=== PATIENT | male | born 1980 | race Caucasian/White ===

== ENCOUNTER 2020-06-16 08:33 | Emergency (ER) | payer SELFPAY ==
[2020-06-16 09:17] LABS: #Basophils 0.1 thou/uL (0.0-0.2); #Eosinphils 0.3 thou/uL (0.0-0.7); #Lymphocytes 1.8 thou/uL (1.20-3.40); #Monocytes 0.7 thou/uL (0.11-0.59); #Neutrophils 4.4 thou/uL (1.40-6.50); %Basophils 1.7 % (0.0-1.0); %Eosinophils 3.9 % (0.0-10.0); %Lymphocytes 24.6 % (21.0-51.0); %Monocytes 9.9 % (0.0-10.0); %Neutrophils 59.9 % (42.0-75.0); Hemoglobin 15.5 g/dL (14.0-18.0); Mean Corpuscular HGB CONC 34.3 g/dL (32.0-36.0); Mean Corpuscular Hemoglobin 30.1 pg (27.0-31.0); Mean Corpuscular Volume 87.8 fL (78.0-98.0); Mean Platelet Volume 7.6 fL (7.4-10.4); Platelet Count 319 thou/uL (130-400); RBC Distribution Width 11.5 % (11.5-14.5); Red Blood Cell (RBC) Count 5.14 mill/uL (4.70-6.10); White Blood Cell (WBC) Count 7.3 thou/uL (4.8-10.8)
--- NOTE | 2020-06-16 09:19 | RAD ---
EXAM: CHEST ONE VIEW HISTORY: Anxiety, dyspnea. COMPARISON: None FINDINGS: Cardiac silhouette is magnified by shallow depth of inspiration and portable technique. Pulmonary vas culature is within normal limits. The lungs are clear. There is partial visualization of a plate and screws transfixing the visualized proximal right humerus. IMPRESSION: No acute cardiopulmonary process.
[2020-06-16 09:33] LABS: ALT (SGPT) 49 U/L (8-55); AST (SGOT) 24 U/L (5-34); Alkaline Phosphatase 87 U/L (40-110); Anion Gap 13 mmol/L (10-20); BUN (Urea Nitrogen) 13 mg/dL (8.9-20.6); Bilirubin, Total 0.3 mg/dL (0.2-1.2); CK (CPK) 66 U/L (30-200); Calc. Creatinine Clearance 0 mL/min (70-130); Carbon Dioxide 24 mmol/L (22-29); Chloride 103 mmol/L (98-107); Estimated GFR-MDRD Greater than 90; Globulin 2.8 g/dL (2.4-3.5); Glucose 129 mg/dL (70-105); Potassium 4.3 mmol/L (3.5-5.1); Protein, Total 6.8 g/dL (6.0-8.3); Sodium 136 mmol/L (136-145)
== END 2020-06-16 10:27 | disposition home or self-care (01) ==
LOC: NAV ERS 08:33
DX: S29.011A Strain of muscle and tendon of front wall of thorax, initial encounter (principal); S16.1XXA Strain of muscle, fascia and tendon at neck level, initial encounter; G44.209 Tension-type headache, unspecified, not intractable; F41.9 Anxiety disorder, unspecified; F32.9 Major depressive disorder, single episode, unspecified; F43.10 Post-traumatic stress disorder, unspecified; E78.5 Hyperlipidemia, unspecified; E78.00 Pure hypercholesterolemia, unspecified; I10 Essential (primary) hypertension; Z79.899 Other long term (current) drug therapy; X50.1XXA Overexertion from prolonged static or awkward postures, initial encounter
CPT/HCPCS: 71045; 80053; 82550; 84484; 85025; 93005

== ENCOUNTER 2021-05-22 18:12 | Emergency (ER) | payer SELFPAY | END 2021-05-22 19:04 | disposition home or self-care (01) | LOC: NAV ERS 18:12 | DX: M12.571 Traumatic arthropathy, right ankle and foot (principal); T14.90XS Injury, unspecified, sequela; W22.8XXS Striking against or struck by other objects, sequela ==

== ENCOUNTER 2021-09-02 22:08 | Emergency (ER) | payer SELFPAY ==
[2021-09-02] MEDS ORDERED: Sulfameth/Trimethoprim DS 800-160mg TAB ONE (22:46)
== END 2021-09-02 22:50 | disposition home or self-care (01) ==
LOC: NAV ERS 22:08
DX: L03.221 Cellulitis of neck (principal); H60.11 Cellulitis of right external ear; J34.0 Abscess, furuncle and carbuncle of nose; Z79.899 Other long term (current) drug therapy; I10 Essential (primary) hypertension
CPT/HCPCS: 99283

== ENCOUNTER 2021-09-23 20:56 | Emergency (ER) | payer BC, SELFPAY ==
[2021-09-23] MEDS ORDERED: Albuterol Sulfate 2.5 mg/0.5 ml Neb ONE (21:07)
[2021-09-23] MEDS ORDERED: methylPREDNISolone Sod Succ/PF 125 MG/2 ML VIAL ONE (21:07)
[2021-09-23] MEDS ORDERED: Ipratropium Bromide 2.5 ml Neb ONE (21:07)
[2021-09-23] MEDS ORDERED: Famotidine/PF 20 mg/2ml Vial ONE (21:07)
== END 2021-09-23 22:11 | disposition home or self-care (01) ==
LOC: NAV ERS 20:56
DX: T78.1XXA Other adverse food reactions, not elsewhere classified, initial encounter (principal); R06.2 Wheezing; E78.5 Hyperlipidemia, unspecified; E78.00 Pure hypercholesterolemia, unspecified; I10 Essential (primary) hypertension; Z79.899 Other long term (current) drug therapy
CPT/HCPCS: 94640; 94760; 96374; 96375; J2930; J7611; S0028

== ENCOUNTER 2021-11-05 13:26 | Emergency (ER) | payer BC ==
[2021-11-05 13:53] LABS: #Basophils 0.1 thou/uL (0.0-0.2); #Eosinphils 0.3 thou/uL (0.0-0.7); #Lymphocytes 1.8 thou/uL (1.20-3.40); #Monocytes 0.7 thou/uL (0.11-0.59); #Neutrophils 4.1 thou/uL (1.40-6.50); %Basophils 1.6 % (0.0-1.0); %Eosinophils 4.7 % (0.0-10.0); %Lymphocytes 25.2 % (21.0-51.0); %Monocytes 9.5 % (0.0-10.0); %Neutrophils 58.9 % (42.0-75.0); Hemoglobin 16.3 g/dL (14.0-18.0); Mean Corpuscular HGB CONC 33.6 g/dL (32.0-36.0); Mean Corpuscular Hemoglobin 29.7 pg (27.0-31.0); Mean Corpuscular Volume 88.4 fL (78.0-98.0); Mean Platelet Volume 7.5 fL (7.4-10.4); Platelet Count 332 thou/uL (130-400); RBC Distribution Width 11.5 % (11.5-14.5); Red Blood Cell (RBC) Count 5.47 mill/uL (4.70-6.10); White Blood Cell (WBC) Count 6.9 thou/uL (4.8-10.8)
[2021-11-05] MEDS ORDERED: Metoclopramide HCl 10 MG/2 ML VIAL ONE (14:02)
[2021-11-05] MEDS ORDERED: diphenhydrAMINE 50 MG/ML VIAL ONE (14:02)
[2021-11-05] MEDS ORDERED: Sodium Chloride 0.9% 100 ML ONE (14:02)
[2021-11-05] MEDS ORDERED: Acetaminophen 500 MG TAB ONE (14:02)
[2021-11-05 14:07] LABS: ALT (SGPT) 46 U/L (8-55); AST (SGOT) 23 U/L (5-34); Albumin 4.4 g/dL (3.5-5.0); Alkaline Phosphatase 87 U/L (40-110); Anion Gap 15 mmol/L (10-20); BUN (Urea Nitrogen) 16 mg/dL (8.9-20.6); Bilirubin, Total 0.7 mg/dL (0.2-1.2); Calc. Creatinine Clearance 0 mL/min (70-130); Calcium 9.3 mg/dL (7.8-10.44); Carbon Dioxide 25 mmol/L (22-29); Chloride 100 mmol/L (98-107); Globulin 2.9 g/dL (2.4-3.5); Glucose 193 mg/dL (70-105); Lipase 16 U/L (8-78); Protein, Total 7.3 g/dL (6.0-8.3); Sodium 136 mmol/L (136-145)
[2021-11-05] MEDS ORDERED: methylPREDNISolone Sod Succ/PF 125 MG/2 ML VIAL ONE (15:44)
[2021-11-05] MEDS ORDERED: Ketorolac Tromethamine 30 MG/ML VIAL ONE (15:44)
== END 2021-11-05 17:41 | disposition home or self-care (01) ==
LOC: NAV ERS 13:26
DX: G43.909 Migraine, unspecified, not intractable, without status migrainosus (principal); R07.9 Chest pain, unspecified; R73.9 Hyperglycemia, unspecified; I10 Essential (primary) hypertension; E78.5 Hyperlipidemia, unspecified; E78.00 Pure hypercholesterolemia, unspecified
CPT/HCPCS: 36416; 70450; 71045; 80053; 83690; 84484; 85025; 93005; 96365; 96375; J1200; J1885; J2765; J2930

== ENCOUNTER 2022-06-19 20:56 | Emergency (ER) | payer BC, SELFPAY ==
[2022-06-19] MEDS ORDERED: Clindamycin 150 MG CAP ONE (21:41)
== END 2022-06-19 21:45 | disposition home or self-care (01) ==
LOC: NAV ERS 20:56
DX: L03.211 Cellulitis of face (principal); L03.221 Cellulitis of neck; L03.113 Cellulitis of right upper limb; E78.00 Pure hypercholesterolemia, unspecified; I10 Essential (primary) hypertension; Z79.899 Other long term (current) drug therapy
CPT/HCPCS: 99283

== ENCOUNTER 2022-07-13 16:48 | Emergency (ER) | payer SELFPAY ==
[2022-07-13] MEDS ORDERED: Ketorolac Tromethamine 30 MG/ML VIAL ONE (17:26)
[2022-07-13] MEDS ORDERED: Sodium Chloride 0.9% 1,000 ML ONE (17:26)
[2022-07-13] MEDS ORDERED: Ondansetron PF 4 MG/2 ML Vial ONE (17:26)
== END 2022-07-13 18:33 | disposition home or self-care (01) ==
LOC: NAV ERS 16:48
DX: B34.9 Viral infection, unspecified (principal); E78.00 Pure hypercholesterolemia, unspecified; I10 Essential (primary) hypertension; Z20.822 Contact with and (suspected) exposure to COVID-19; Z79.899 Other long term (current) drug therapy
CPT/HCPCS: 87804; 96361; 96374; 96375; J1885; J2405; J7050; U0003; U0005

== ENCOUNTER 2022-09-30 12:33 | Emergency (ER) | payer SELFPAY | END 2022-09-30 14:03 | disposition home or self-care (01) | LOC: NAV ERS 12:33 | DX: J06.9 Acute upper respiratory infection, unspecified (principal); I10 Essential (primary) hypertension; E78.00 Pure hypercholesterolemia, unspecified; Z79.899 Other long term (current) drug therapy | CPT/HCPCS: 71046; 87081; 87430; 87804; 87807 ==

== ENCOUNTER 2023-01-11 14:40 | Emergency (ER) | payer SELFPAY ==
[2023-01-11] MEDS ORDERED: Ondansetron ODT 4 MG TAB ONE (15:32)
[2023-01-11] MEDS ORDERED: Ibuprofen 200 MG TAB ONE (15:32)
== END 2023-01-11 15:40 | disposition home or self-care (01) ==
LOC: NAV ERS 14:40
DX: J32.9 Chronic sinusitis, unspecified (principal); E11.9 Type 2 diabetes mellitus without complications; E78.5 Hyperlipidemia, unspecified; I10 Essential (primary) hypertension; Z79.899 Other long term (current) drug therapy
CPT/HCPCS: 36416; 99283; Q0162

== ENCOUNTER 2023-06-06 22:01 | Emergency (ER) | payer BC, SELFPAY ==
[2023-06-06 22:56] LABS: #Basophils 0.1 thou/uL (0.0-0.2); #Eosinphils 0.2 thou/uL (0.0-0.7); #Lymphocytes 1.1 thou/uL (1.20-3.40); #Monocytes 0.8 thou/uL (0.11-0.59); %Basophils 0.6 % (0.0-1.0); %Eosinophils 1.7 % (0.0-10.0); %Lymphocytes 9.5 % (21.0-51.0); %Monocytes 7.3 % (0.0-10.0); %Neutrophils 80.9 % (42.0-75.0); Hemoglobin 14.5 g/dL (14.0-18.0); Mean Corpuscular HGB CONC 33.7 g/dL (32.0-36.0); Mean Corpuscular Hemoglobin 29.7 pg (27.0-31.0); Mean Corpuscular Volume 88.1 fl (78.0-98.0); Mean Platelet Volume 7.4 fL (7.4-10.4); Platelet Count 374 10x3/uL (130-400); RBC Distribution Width 11.6 % (11.5-14.5); Red Blood Cell (RBC) Count 4.88 mill/uL (4.70-6.10); White Blood Cell (WBC) Count 11.1 10x3/uL (4.8-10.8)
[2023-06-06] MEDS ORDERED: Promethazine HCl 25 MG/ML VIAL ONE (23:03)
[2023-06-06] MEDS ORDERED: Sodium Chloride 0.9% 1,000 ML ONE (23:03)
[2023-06-06] MEDS ORDERED: Morphine 4 MG/ML VIAL ONE (23:03)
[2023-06-06 23:12] LABS: ALT (SGPT) 50 U/L (8-55); AST (SGOT) 39 U/L (5-34); Albumin 4.3 g/dL (3.5-5.0); Alkaline Phosphatase 70 U/L (40-110); Anion Gap 16 mmol/L (10-20); BUN (Urea Nitrogen) 14 mg/dL (8.9-20.6); Bilirubin, Total 0.6 mg/dL (0.2-1.2); Calc. Creatinine Clearance 0 mL/min (70-130); Calcium 9.9 mg/dL (7.8-10.44); Carbon Dioxide 29 mmol/L (22-29); Chloride 97 mmol/L (98-107); Estimated GFR 59; Glucose 141 mg/dL (70-105); Lipase 14 U/L (8-78); Potassium 4.6 mmol/L (3.5-5.1); Protein, Total 7.3 g/dL (6.0-8.3); Sodium 137 mmol/L (136-145)
[2023-06-06 23:29] LABS: Bilirubin Negative (Negative); Blood, Urine Negative (Negative); CAUTI Indications for Culture Pelvic or flank pain; Clarity Clear (Clear); Glucose, Urine (Dipstick) Negative (Negative); Ketone, Urine Trace mg/dL (Negative); Leukocyte Negative (Negative); Nitrite Negative (Negative); Protein, Urine (Dipstick) 30 mg/dL (Neg-Trace); WBC/HPF 0-3 HPF (0-3)
[2023-06-06 23:30] LABS: Urine Culture Reflex No No
== END 2023-06-07 00:10 | disposition home or self-care (01) ==
LOC: NAV ERS 22:01
DX: R10.12 Left upper quadrant pain (principal); R10.11 Right upper quadrant pain; R11.2 Nausea with vomiting, unspecified; E11.9 Type 2 diabetes mellitus without complications; E78.5 Hyperlipidemia, unspecified; I10 Essential (primary) hypertension; Z79.899 Other long term (current) drug therapy
CPT/HCPCS: 74022; 80053; 81001; 83605; 83690; 85025; 96374; 96375; J2270; J2550; J7050

== ENCOUNTER 2023-07-08 14:39 | Emergency (ER) | payer BC ==
[2023-07-08] MEDS ORDERED: Sodium Chloride 0.9% 1,000 ML ONE (15:14)
[2023-07-08 15:22] LABS: #Basophils 0.1 thou/uL (0.0-0.2); #Eosinphils 0.3 thou/uL (0.0-0.7); #Lymphocytes 1.5 thou/uL (1.20-3.40); #Monocytes 0.4 thou/uL (0.11-0.59); #Neutrophils 3.4 thou/uL (1.40-6.50); %Eosinophils 4.5 % (0.0-10.0); %Lymphocytes 26.8 % (21.0-51.0); %Monocytes 7.6 % (0.0-10.0); %Neutrophils 60.1 % (42.0-75.0); Hemoglobin 14.5 g/dL (14.0-18.0); Mean Corpuscular HGB CONC 34.4 g/dL (32.0-36.0); Mean Corpuscular Hemoglobin 29.9 pg (27.0-31.0); Mean Platelet Volume 8.2 fL (7.4-10.4); Platelet Count 293 10x3/uL (130-400); RBC Distribution Width 11.9 % (11.5-14.5); Red Blood Cell (RBC) Count 4.83 mill/uL (4.70-6.10); White Blood Cell (WBC) Count 5.6 10x3/uL (4.8-10.8)
[2023-07-08 15:28] LABS: Base Excess-Venous -0.4 mmol/L (-2.0 to 3.0); CO2 Tension (PvCO2) 53.4 mmHg (42.0-51.0); Calcium, Ionized 1.27 mmol/L (1.15-1.33); Chloride 103 mmol/L (98-107); Hemoglobin - Calc 15.4 g/dL (14.0-18.0); Potassium 4.5 mmol/L (3.5-5.1); Sodium 138 mmol/L (138-145); T. Carbon Dioxide 28.6 mmol/L (22.0-28.0); vO2 Saturation-calc 57.8 % (60.0-85.0)
[2023-07-08 15:39] LABS: ALT (SGPT) 47 U/L (8-55); AST (SGOT) 28 U/L (5-34); Albumin 4.4 g/dL (3.5-5.0); Alkaline Phosphatase 103 U/L (40-110); Anion Gap 13 mmol/L (10-20); BUN (Urea Nitrogen) 15 mg/dL (8.9-20.6); Bilirubin, Total 0.3 mg/dL (0.2-1.2); Calc. Creatinine Clearance 0 mL/min (70-130); Calcium 9.4 mg/dL (7.8-10.44); Carbon Dioxide 25 mmol/L (22-29); Chloride 102 mmol/L (98-107); Estimated GFR 52; Glucose 292 mg/dL (70-105); Potassium 4.4 mmol/L (3.5-5.1); Protein, Total 7.4 g/dL (6.0-8.3); Sodium 136 mmol/L (136-145)
[2023-07-08] MEDS ORDERED: Insulin Regular 300 UNITS/3 ML VIAL ONE (16:01)
== END 2023-07-08 16:28 | disposition home or self-care (01) ==
LOC: NAV ERS 14:39
DX: E11.65 Type 2 diabetes mellitus with hyperglycemia (principal); E11.22 Type 2 diabetes mellitus with diabetic chronic kidney disease; N18.9 Chronic kidney disease, unspecified; I12.9 Hypertensive chronic kidney disease with stage 1 through stage 4 chronic kidney disease, or unspecified chronic kidney disease; E78.2 Mixed hyperlipidemia; Z79.899 Other long term (current) drug therapy
CPT/HCPCS: 36416; 80053; 82330; 82803; 83690; 84443; 85025; 96360; J1815; J7050

== ENCOUNTER 2024-03-03 03:01 | Emergency (ER) | payer BC, SELFPAY ==
[2024-03-03] MEDS ORDERED: HYDROcodone/Acetaminophen 5/325 mg Tablet ONE (03:26)
== END 2024-03-03 03:35 | disposition home or self-care (01) ==
LOC: NAV ERS 03:01
DX: M10.9 Gout, unspecified (principal); E11.9 Type 2 diabetes mellitus without complications; E78.00 Pure hypercholesterolemia, unspecified; I10 Essential (primary) hypertension; Z79.899 Other long term (current) drug therapy
CPT/HCPCS: 99283

== ENCOUNTER 2024-03-23 21:56 | Emergency (ER) | payer BC ==
[2024-03-23] MEDS ORDERED: AMOXicillin 250 MG CAP ONE (22:42)
[2024-03-23] MEDS ORDERED: Acetaminophen 500 MG TAB ONE (22:42)
[2024-03-23 22:43] LABS: #Eosinphils 0.1 thou/uL (0.0-0.7); #Monocytes 0.6 thou/uL (0.11-0.59); #Neutrophils 5.1 thou/uL (1.40-6.50); %Basophils 0.5 % (0.0-1.0); %Monocytes 8.9 % (0.0-10.0); %Neutrophils 74.6 % (42.0-75.0); Hematocrit 43.8 % (42.0-52.0); Hemoglobin 14.6 g/dL (14.0-18.0); Mean Corpuscular HGB CONC 33.3 g/dL (32.0-36.0); Mean Corpuscular Hemoglobin 27.9 pg (27.0-31.0); Mean Corpuscular Volume 83.8 fl (78.0-98.0); Mean Platelet Volume 6.8 fL (7.4-10.4); Platelet Count 248 10x3/uL (130-400); RBC Distribution Width 11.9 % (11.5-14.5); Red Blood Cell (RBC) Count 5.23 mill/uL (4.70-6.10); White Blood Cell (WBC) Count 6.8 10x3/uL (4.8-10.8)
[2024-03-23 23:01] LABS: ALT (SGPT) 55 U/L (8-55); AST (SGOT) 34 U/L (5-34); Albumin 4.1 g/dL (3.5-5.0); Alkaline Phosphatase 104 U/L (40-110); Anion Gap 16 mmol/L (10-20); BUN (Urea Nitrogen) 10 mg/dL (8.9-20.6); Bilirubin, Total 0.6 mg/dL (0.2-1.2); Calc. Creatinine Clearance 0 mL/min (70-130); Calcium 9.2 mg/dL (7.8-10.44); Carbon Dioxide 27 mmol/L (22-29); Chloride 97 mmol/L (98-107); Estimated GFR 52; Globulin 3.2 g/dL (2.4-3.5); Glucose 236 mg/dL (70-105); Potassium 3.6 mmol/L (3.5-5.1); Protein, Total 7.3 g/dL (6.0-8.3); Sodium 136 mmol/L (136-145)
== END 2024-03-24 00:10 | disposition home or self-care (01) ==
LOC: NAV ERS 21:56
DX: K04.7 Periapical abscess without sinus (principal); R68.83 Chills (without fever); E11.9 Type 2 diabetes mellitus without complications; I10 Essential (primary) hypertension; E78.00 Pure hypercholesterolemia, unspecified; Z79.899 Other long term (current) drug therapy
CPT/HCPCS: 80053; 85025; 99283

== ENCOUNTER 2024-04-14 22:58 | Emergency (ER) | payer BC ==
[2024-04-14] MEDS ORDERED: metFORMIN 500 MG TAB ONE (23:29)
== END 2024-04-14 23:45 | disposition home or self-care (01) ==
LOC: NAV ERS 22:58
DX: E11.65 Type 2 diabetes mellitus with hyperglycemia (principal); I10 Essential (primary) hypertension
CPT/HCPCS: 36416; 99284

== ENCOUNTER 2024-11-15 20:22 | Emergency (ER) | payer BC, OTHER ==
[2024-11-15] MEDS ORDERED: HYDROcodone/Acetaminophen 10/325 mg Tablet ONE (20:54)
[2024-11-15] MEDS ORDERED: Erythromycin Base 0.5% Ophth Oint 3.5 gm Tube ONE (21:09)
== END 2024-11-15 21:30 | disposition home or self-care (01) ==
LOC: NAV ERS 20:22
DX: T26.62XA Corrosion of cornea and conjunctival sac, left eye, initial encounter (principal); T26.61XA Corrosion of cornea and conjunctival sac, right eye, initial encounter; E11.9 Type 2 diabetes mellitus without complications; I10 Essential (primary) hypertension
CPT/HCPCS: 99283